=== PATIENT | female | born 1970 | race Caucasian/White ===

== ENCOUNTER 2019-02-20 19:15 | Emergency (ER) | payer OTHER ==
[~2019-02-20] VITALS: Ht 160 cm; Wt 108.9 kg
[~2019-02-20 19:15] MED LIST: ALBUTEROL INHAL17 GM IH; AZITHROMYCIN 2250 MG PO; ERYTHROMYCIN E3.5 G1 OP; MEDROLDOSEPACK PO; PAXIL40 MG PO
[2019-02-20 19:24] VITALS: BP 112/62
[2019-02-20] MEDS ORDERED: ZESTRIL20 MG PO (19:27)
[2019-02-20] MEDS ORDERED: HYDROCHLOROTH12.5 M1 PO (19:27)
[2019-02-20] MEDS ORDERED: GLUCOPHAGE1000 MG PO (19:27)
[2019-02-20] MEDS ORDERED: TRIAMCINOLONE A80 G2 TOP (20:17)
[2019-02-20] MEDS ORDERED: PREDNISONE 10 M10 MG PO (20:17)
== END 2019-02-20 20:31 | disposition home or self-care (01) ==
LOC: M.ERS 19:15
DX: L40.9 Psoriasis, unspecified (principal); E66.9 Obesity, unspecified; F17.210 Nicotine dependence, cigarettes, uncomplicated; Z68.41 Body mass index [BMI] 40.0-44.9, adult; Z90.49 Acquired absence of other specified parts of digestive tract